=== PATIENT | male | born 1980 | race Caucasian/White ===

== ENCOUNTER 2017-04-13 03:30 | Emergency (ER) | payer BC ==
[~2017-04-13] VITALS: Ht 182.9 cm; Wt 70.8 kg
[2017-04-13] MEDS ORDERED: FLOMAX0.4 MG PO (05:33)
[2017-04-13] MEDS ORDERED: PERCOCET 5-3251 EACH PO (05:33)
== END 2017-04-13 05:42 | disposition home or self-care (01) ==
LOC: ED 03:30
DX: N13.2 Hydronephrosis with renal and ureteral calculous obstruction (principal); Z98.890 Other specified postprocedural states
CPT/HCPCS: 74177; 80053; 81001; 83690; 85025; 96374; 96375; 99284; J1885; J2405; Q9967

== ENCOUNTER 2023-06-09 11:01 | Emergency (ER) | payer OTHER, BC ==
[~2023-06-09] VITALS: Ht 182.9 cm; Wt 80.3 kg
[~2023-06-09 11:01] MED LIST: FLOMAX0.4 MG PO; PERCOCET 5-3251 EACH PO
[2023-06-09] MEDS ORDERED: AMOX TR-K CLV1 EAC1 PO (14:06)
[2023-06-09] MEDS ORDERED: HYDROCODON-ACE1 EA10 PO (14:06)
[2023-06-09 14:28] VITALS: BP 143/88
== END 2023-06-09 14:29 | disposition home or self-care (01) ==
LOC: ED 11:01
DX: S02.841A Fracture of lateral orbital wall, right side, initial encounter for closed fracture (principal); S02.40CA Maxillary fracture, right side, initial encounter for closed fracture; S02.40EA Zygomatic fracture, right side, initial encounter for closed fracture; Y04.0XXA Assault by unarmed brawl or fight, initial encounter
CPT/HCPCS: 70486; 99284-25